=== PATIENT | male | born 1985 ===

== ENCOUNTER 2019-11-22 15:52 | Outpatient (CLI) | payer BC | END 2019-11-22 15:53 | disposition home or self-care (01) | LOC: COV 15:52 | PROVIDERS: ATTEND Family Medicine | DX: R05 Cough (principal); R06.02 Shortness of breath; R53.83 Other fatigue; M79.10 Myalgia, unspecified site; J02.9 Acute pharyngitis, unspecified | CPT/HCPCS: 81599 ==